=== PATIENT | female | born 1940 | race Asian ===

== ENCOUNTER 2018-10-09 16:29 | Emergency (ER) | payer MEDICARE, OTHER ==
[2018-10-09] MEDS: PROTAMINE 50 MG INJ IV (19:04)
== END 2018-10-09 20:26 | disposition home or self-care (01) ==
LOC: E/R 16:29
DX: T82.9XXA Unspecified complication of cardiac and vascular prosthetic device, implant and graft, initial encounter (principal); I12.0 Hypertensive chronic kidney disease with stage 5 chronic kidney disease or end stage renal disease; N18.6 End stage renal disease; E11.22 Type 2 diabetes mellitus with diabetic chronic kidney disease; Y82.8 Other medical devices associated with adverse incidents; Z79.84 Long term (current) use of oral hypoglycemic drugs
CPT/HCPCS: 96374; 99284-25; J2720